=== PATIENT | female | born 1975 | race Caucasian/White ===

== ENCOUNTER 2024-06-01 13:08 | Day surgery (SDC) | payer OTHER ==
[2012-02-03 21:20] VITALS: BP 102/73
[2024-06-01] MEDS ORDERED: Depo-Medrol 40 MG/ML IM ONE (13:09)
[2024-06-01] MEDS ORDERED: BUPIVACAINE 0.5% VIAL IJ ONE (13:09)
[2024-06-01 13:19] LABS: HCG URINE TEST NEGATIVE (NEGATIVE)
[2024-06-01] MEDS ORDERED: propofoL IV ONE (14:04)
--- NOTE | 2024-06-01 16:56 | XRAY ---
Indication: Bilateral SI joint injection. Intraoperative fluoroscopy provided for 18 seconds. 2 digital spot image submitted for interpretation demonstrates posterior needle tips projecting over left and right SI joints. Small amount of contrast injected for needle tip placement. Correlate with intraoperative findings/report.
--- NOTE | 2024-06-01 17:20 | XRAY ---
18 seconds of fluoroscopy was used in surgery for a bilateral sacroiliac joint injection.
== END 2024-06-01 14:32 | disposition home or self-care (01) ==
LOC: SDC-PAIN 13:08
PROVIDERS: ATTEND Psychiatry & Neurology Pain Medicine
DX: M46.1 Sacroiliitis, not elsewhere classified (principal)
CPT/HCPCS: 27096; 72202; 77002; 81025; J2704; Q9966

== ENCOUNTER 2024-07-13 11:29 | Day surgery (SDC) | payer OTHER ==
[2012-02-03 21:20] VITALS: BP 102/73
[2024-07-13] MEDS ORDERED: methylPREDNISolone acetate IM ONE (11:30)
[2024-07-13] MEDS ORDERED: LIDOCAINE HCL 2% 100 MG/5 ML IJ ONE (11:30)
[2024-07-13] MEDS ORDERED: propofoL IV ONE (12:39)
[2024-07-13 13:37] LABS: HCG URINE TEST NEGATIVE (NEGATIVE)
--- NOTE | 2024-07-13 14:33 | XRAY ---
Indication: Bilateral L4-S1 MBB. Intraoperative fluoroscopy provided for 11 seconds. Single digital spot image submitted for interpretation demonstrates posterior needle tips projecting over expected left and right L4-S1 nerve roots. Correlate with intraoperative findings/report.
--- NOTE | 2024-07-13 15:20 | XRAY ---
11 seconds of fluoroscopy was used in surgery for a bilateral L4-S1 MBB.
== END 2024-07-13 13:07 | disposition home or self-care (01) ==
LOC: SDC-PAIN 11:29
PROVIDERS: ATTEND Psychiatry & Neurology Pain Medicine
DX: M47.816 Spondylosis without myelopathy or radiculopathy, lumbar region (principal)
CPT/HCPCS: 64493; 64494; 72020; 77002; 81025; J1010; J2704

== ENCOUNTER 2024-07-28 09:31 | Day surgery (SDC) | payer OTHER ==
[2012-02-03 21:20] VITALS: BP 102/73
[2024-07-28] MEDS ORDERED: methylPREDNISolone acetate IM ONE (09:32)
[2024-07-28] MEDS ORDERED: BUPIVACAINE 0.5% VIAL IJ ONE (09:32)
[2024-07-28] MEDS ORDERED: LIDOCAINE HCL 1% 50 MG/5 ML VL IJ ONE (09:32)
[2024-07-28 10:31] LABS: HCG URINE TEST NEGATIVE (NEGATIVE)
[2024-07-28] MEDS ORDERED: propofoL IV ONE (11:46)
--- NOTE | 2024-07-28 13:22 | XRAY ---
Indication: Bilateral greater trochanter bursa injection. Intraoperative fluoroscopy provided for 23 seconds. 3 digital spot image submitted for interpretation demonstrates needle tips projecting lateral to left and right greater trochanters. Small amount of contrast injected for both needle tip placement. Correlate with intraoperative findings/report.
--- NOTE | 2024-07-28 14:52 | XRAY ---
23 seconds of fluoroscopy was used in surgery for a bilateral greater trochanteric bursa injection.
== END 2024-07-28 12:13 | disposition home or self-care (01) ==
LOC: SDC-PAIN 09:31
PROVIDERS: ATTEND Psychiatry & Neurology Pain Medicine
DX: M70.62 Trochanteric bursitis, left hip (principal); M70.61 Trochanteric bursitis, right hip
CPT/HCPCS: 20610; 73521; 77002; 81025; J1010; J2704; Q9966

== ENCOUNTER 2025-03-05 18:01 | Observation (INO) | payer OTHER ==
--- NOTE | 2025-03-05 18:30 | ERPHSYRPT ---
- History of Present Illness Physician History: Left leg swelling and redness, patient had a dog bite about a week ago, she was seen at [facility] emergency department, she states that she had x-rays and an MRI of her left knee, she was transferred to [facility] and her wound was repaired, she was sent home on antibiotics( she was given IV antibiotics), Her left leg is gotten progressively worse over the last several days with more swelling and redness Timing/Duration: day(s) (6) Quality: painful Severity: moderate Location: extremities (Left knee) Allergies/Adverse Reactions: morphine Allergy (Mild, Verified 03/05/25 18:10) sick Sulfa (Sulfonamide Antibiotics) [Sulfa(Sulfonamide Antibiotics)] Allergy (Mild, Verified 03/05/25 18:10) rash/hives Home Medications: Mirabegron [Myrbetriq] 50 mg PO DAILY 03/05/25 [History] Omeprazole 40 mg PO DAILY 03/05/25 [History] Oxycodone HCl 10 mg PO DAILY 03/05/25 [History] Pregabalin 200 mg PO BID 03/05/25 [History] Hx Tetanus, Diphtheria Vaccination/Date Given: No Hx Influenza Vaccination/Date Given: No Hx Pneumococcal Vaccination/Date Given: No - Past Medical History Pertinent Past Medical History: Yes Neurological History: No Pertinent History ENT History: No Pertinent History Cardiac History: No Pertinent History Respiratory History: No Pertinent History Endocrine Medical History: No Pertinent History Musculoskeletal History: No Pertinent History GI Medical History: No Pertinent History History: No Pertinent History Psycho-Social History: No Pertinent History Female Reproductive Disorders: No Pertinent History Other Medical History: none - Past Surgical History Past Surgical History: Yes Neuro Surgical History: No Pertinent History Cardiac: No Pertinent History Respiratory: No Pertinent History Gastrointestinal: No Pertinent History Genitourinary: No Pertinent History Musculoskeletal: No Pertinent History Female Surgical History: No Pertinent History Other Surgical History: tubes in ears,t&a,tubal 1997 then reversal of tubal 2006 - Female History Hx Last Menstrual Period: 2 WEEKS AGO - Social History Smoking Status: Current every day smoker How long have you smoked: 16years Exposure to second hand smoke: No Drug Use: none - Nursing Vital Signs Nursing Vital Signs: Initial Vital Signs Temperature 98.5 F 03/05/25 18:02 Pulse Rate 78 03/05/25 18:02 Respiratory Rate 16 03/05/25 18:02 Blood Pressure 150/99 03/05/25 18:02 O2 Sat by Pulse Oximetry 96 03/05/25 18:02 Pain Scale Pain Intensity 10 - Physical Exam General Appearance: no apparent distress, alert Eye Exam: PERRL/EOMI, eyes nml inspection Ears, Nose, Throat Exam: normal ENT inspection, pharynx normal, moist mucous membranes Neck Exam: normal inspection, non-tender, supple, full range of motion Respiratory Exam: normal breath sounds, lungs clear, No respiratory distress Cardiovascular Exam: regular rate/rhythm, normal heart sounds Gastrointestinal/Abdomen Exam: soft, mass, No tenderness Back Exam: normal inspection, normal range of motion, No CVA tenderness, No vertebral tenderness Extremity Exam: limited range of motion (left knee), swelling (left knee and proximal tibial skin), tenderness (left knee and tibial skin) Neurologic Exam: alert, oriented x 3, cooperative, normal mood/affect, sensation nml, No motor deficits Skin Exam: normal color, warm, dry, other (sutures in place, no active drainage) SpO2 Interpretation: normal SpO2: 97 Ordered Tests: Active Orders 24 hr Category Date Time Status IV Insertion STAT Care 03/05/25 18:19 Active BLOOD CULTURE Stat Lab 03/05/25 18:33 Received CBC W DIFF Stat Lab 03/05/25 18:30 Received CMP Stat Lab 03/05/25 18:30 Received Lactic Acid Stat Lab 03/05/25 18:41 Completed Medication Summary Discontinued Medications Generic Name Dose Route Start Last Admin Trade Name Freq PRN Reason Stop Dose Admin Hydromorphone HCl 0.5 mg 03/05/25 18:51 03/05/25 18:55 Hydromorphone 1 Mg/1ml Inj IV 03/05/25 18:52 0.5 mg STAT ONE Administration Hydromorphone HCl Confirm 03/05/25 18:55 Hydromorphone 1 Mg/1ml Inj Administered 03/05/25 18:56 Dose 1 mg .ROUTE .STK-MED ONE Ondansetron HCl 4 mg 03/05/25 18:58 Ondansetron Hcl 4 Mg/2 Ml Vial IV 03/05/25 18:59 STAT ONE Oxycodone/Acetaminophen 2 tab 03/05/25 18:46 03/05/25 18:52 Oxycodone Hcl/Apap 5 Mg/325 Mg Tablet PO 03/05/25 18:47 Not Given STAT STA Lab/Rad Data: Laboratory Results 03/05/25 Range/Units 18:41 Lactic Acid 1.0 (0.4-2.0) - Progress Progress Note: 03/05/25 19:[address] Del Rio - Departure Clinical Impression: Dog bite of left lower leg with infection Qualifiers: Encounter type: sequela Qualified Code(s): S81.852S - Open bite, left lower leg, sequela; L08.9 - Local infection of the skin and subcutaneous tissue, unspecified; W54.0XXS - Bitten by dog, sequela Condition: Stable Critical Care Time: No Referrals: KUNAL BIRMINGHAM NP [Primary Care Provider, UNKNOWN] - Follow up/PCP as directed
[2025-03-05 18:37] LABS: BASOPHIL % 0.3 % (0.1-1.2); Basophil (Absolute #) 0.02 x10^3/uL (0.01-0.08); Eosinophil (Absolute #) 0.15 x10^3/uL (0.04-0.36); Hematocrit 29.4 % (34.1-44.9); Hemoglobin 9.2 g/dL (11.2-15.7); IMMATURE GRAN # 0.07 x10^3u/L (0.001-0.031); IMMATURE GRAN % 1.1 % (0.001-0.429); Lymphocyte (Absolute #) 1.90 x10^3/uL (1.18-3.74); Mean Corpuscular Hemoglobin 28.4 pg (25.6-32.2); Mean Corpuscular Hgb Concent. 31.3 g/dL (32.2-35.5); Monocyte (Absolute #) 0.35 x10^3/uL (0.24-0.86); NUCLEATED RBC # 0.00 x10^3u/L (0.00-0.012); NUCLEATED RBC % 0.0 % (0.00-0.2); Platelet Count 294 x10^3/uL (182-369); Red Blood Count 3.24 x10^6/uL (3.93-5.22); White Blood Count 6.6 x10^3/uL (3.98-10.04)
[2025-03-05] MEDS: PERCOCET TABLET 5/325MG PO STA (18:52)
[2025-03-05] MEDS: Hydromorphone 1 mg/ml Injection IV ONE ×2 (18:55→23:32)
[2025-03-05] MEDS ORDERED: Hydromorphone 1 mg/ml Injection ONE (18:55)
[2025-03-05 18:56] LABS: Calcium 8.9 mg/dL (8.4-10.2); Carbon Dioxide 27.0 mmol/L (22-30); Creatinine 1 0.81 mg/dL (0.52-1.04); EST GLOMERULAR FILTRATION RATE 88.4 ML/MIN; Glucose 115.0 mg/dL (74-106); Potassium 3.8 mmol/L (3.5-5.1); SGOT/AST 61.0 U/L (14-36); Total Protein 7.3 g/dL (6.3-8.2)
[2025-03-05] MEDS ORDERED: Zofran 4 MG/2 ML VIAL ONE (18:58)
[2025-03-05 18:59] LABS: SGPT/ALT 5.0 U/L (0-35)
[2025-03-05] MEDS: Zofran 4 MG/2 ML VIAL IV ONE (18:59)
[2025-03-05] MEDS ORDERED: PIPERACILLIN/TAZOBACTAM IV ONE (19:10)
--- NOTE | 2025-03-06 01:10 | PCM.HP ---
History of Present Illness - Chief Complaint Chief Complaint: wound infection Date: 03/05/25 History of Present Illness: TELEMEDICINE H&P Patient name: Justyna GIBBONS Date of : 1975 Date of consultation: 06 March 2025 Inpatient primary provider: Dr. Del Rio Reason for consult: Infected dog bite Room: [facility] Assessment and Plan 1. Infected left lower leg dog bite (acute, uncontrolled) - The wound is located just below the left knee. It is swollen, warm to the touch, and has had some drainage. - The patient experiences significant pain, especially on mobilization. - Plan is to continue Zosyn IV. - Surgical consultation with Dr. Cho has been requested for possible washout. - The patient will be kept NPO after 01:00. - Dilaudid will be provided for pain management. 2. Chronic back pain (chronic, uncontrolled) - The patient takes oxycodone for chronic lower back pain. - This results in a higher tolerance to opioids. - Plan is to provide Dilaudid 2 mg IV every 4 hours as needed for pain. --- Subjective: Reason for Visit: - The patient presented to the emergency department for evaluation of an infected dog bite to the left leg that occurred one week prior. History of Present Illness: - This is a 49-year-old female who was bitten by her pit-donovan mix dog one week ago. She was initially seen at an outside hospital where she received sutures and was treated with one dose of IV antibiotics followed by a 5-day course of oral Augmentin. The sutures remain in place. At home, she experienced persistent significant pain. The area around the bite became increasingly red and appeared infected, prompting her presentation to the emergency room today. She reports nausea but denies any vomiting, fever, or chills. She is able to tolerate oral intake. The pain is described as severe, particularly when she attempts to stand, at which point she feels as though her leg might "explode." Past Medical History: - Irritable bowel syndrome - Bilateral sciatica - Hiatal hernia - Chronic lower back pain Medication History: Outpatient Medications - Omeprazole 40 mg once daily - Pregabalin 200 mg twice daily - Oxycodone 10 mg twice daily for back pain - Mirabegron once daily - Allergies: Sulfa (causes hives) and morphine (causes sickness). Review of Systems: - Constitutional: Denies fever, chills. - Cardiovascular: Denies any history of heart problems. - Gastrointestinal: Reports nausea. Denies vomiting. --- Physical examination Vital Signs Neurological The patient is alert and oriented. Thought content and judgment appear appropriate. Cardiovascular Heart sounds are regular with S1 and S2 present. No murmurs, rubs, or gallops noted. Respiratory Lungs are clear to auscultation bilaterally. Good air entry. Musculoskeletal Examination of the left lower extremity reveals a sutured wound just below the left knee. The surrounding area is swollen compared to the contralateral side and is warm to the touch. There is no active purulent discharge, but there is evidence of recent drainage. Ankle temperature is normal. Bending the knee elicits pain localized to the site of the wound. --- Studies Reviewed - IV antibiotic administration record from ER: I am aware the patient received a dose of Zosyn in the emergency department. Independently reviewed and interpreted by me. Notes reviewed I have reviewed the information provided by the ER physician, Dr. Del Rio, including the discussion with the surgeon, Dr. Cho. --- Thank you for allowing me and my team participate in the care of this patient. Do not hesitate to contact me with any questions or concerns. Aleyda Frias MD Tele Hospitalist Interventional/Structural/General Baggage Agent Supervisor [employer] --- MDM Summary 1. Number and Complexity of Problems Addressed (CoPA): - High Complexity: This patient presents with an acute illness (infected dog bite) that poses a threat to bodily function, superimposed on a chronic illness (chronic pain requiring opioids), which complicates pain management. The infection requires IV antibiotics and potential surgical intervention, indicating a high level of complexity. 2. Amount and/or Complexity of Data to be Reviewed and Analyzed (Data): - Limited: The decision-making process involved reviewing the history of the presenting illness, the patient's medication list, and discussing the case with the ER physician regarding prior treatment (Zosyn administration) and consultati ons (surgical consult with Dr. Cho). This constitutes a limited review of data. 3. Risk of Complications, Morbidity, and/or Mortality (Risk): - High Risk: The patient's management involves IV antibiotics (Zosyn), parenteral controlled substances (Dilaudid), and the decision for NPO status in anticipation of major surgery (wound washout), which carries significant risk. The consideration of hospitalization and escalation of care to a surgical service also classifies the risk as high. Medications & Allergies Home Medications: Home Medication List Mirabegron [Myrbetriq] 50 mg PO DAILY 03/05/25 [History Confirmed 03/05/25] Omeprazole 40 mg PO DAILY 03/05/25 [History Confirmed 03/05/25] Oxycodone HCl 10 mg PO BID 03/05/25 [History Confirmed 03/05/25] Pregabalin 200 mg PO BID 03/05/25 [History Confirmed 03/05/25] Allergies/Adverse Reactions: Allergies Allergy/AdvReac Type Severity Reaction Status Date / Time morphine Allergy Mild sick Verified 03/05/25 18:10 Sulfa (Sulfonamide Allergy Mild rash/hives Verified 03/05/25 18:10 Antibiotics) [Sulfa(Sulfonamide Antibiotics)] - Past Medical History Past Medical History: Yes Neurological History: No Pertinent History ENT History: No Pertinent History Cardiac History: No Pertinent History Respiratory History: No Pertinent History Endocrine Medical History: No Pertinent History Musculoskelatal History: No Pertinent History GI Medical History: GERD History: No Pertinent History Pyscho-Social History: No Pertinent History Reproductive Disorders: No Pertinent History Comment: overactive bladder, IBS, hiatal hernia, bilateral sciatica - Female History Are you now?: No - Past Surgical History Past Surgical History: Yes Neuro Surgical History: No Pertinent History Cardiac History: No Pertinent History Respiratory Surgery: No Pertinent History GI Surgical History: No Pertinent History Genitourinary Surgical Hx: No Pertinent History Musculskeletal Surgical Hx: No Pertinent History Female Surgical History: No Pertinent History Other Surgical History: tubes in ears,t&a,tubal 1997 then reversal of tubal 2006, uterine ablation - Social History Smoking Status: Former smoker How long have you smoked: 16years Exposure to second hand smoke: No Alcohol: Occasionally Drug Use: none - Social Determinants of Health Will the patient participate in the screening: Yes Do you worry about a steady place to live?: No Do you have any problems with any of the following?: No known problems In the past 12 months,have you had to go without utilities?: No Have you or anyone in your house had to go without enough: No Transportation Issues: No Has anyone in your support network made you feel unsafe?: No Does the patient want assistance with any of the above?: No - Physical Exam Vital Signs: Vital Signs - 24 hr Temp Pulse Resp BP BP Pulse Ox 03/05/25 22:35 98.6 F 77 20 118/59 97 03/05/25 22:00 76 18 117/65 97 03/05/25 21:30 72 16 108/69 96 03/05/25 21:00 74 18 120/80 97 03/05/25 20:30 120/81 100 03/05/25 20:00 72 18 111/50 98 03/05/25 19:30 70 15 121/67 98 03/05/25 19:00 97 03/05/25 19:00 80 124/87 96 03/05/25 18:02 98.5 F 78 16 150/99 96 Wound Assessment: Skin/Wound Assessment Wound/Incision Assessment Start: 03/05/25 22:49 Text: Status: Active Freq: Q6H Protocol: Document 03/05/25 22:49 AK (Rec: 03/05/25 22:51 AK [id number]) Wound/Incision Assessment Left Knee Wound Assessment Admission Wound Type dog bite Wound Stage Non Pressure Wound Drainage Amount None General Appearance Well Approximated,Reddened Surrounding Tissue Bright Red,Purple Comment dog bite to left knee - sutures present - periwound redness/bruising/swelling Wound Photo Photo Taken Yes Date: 03/05/25 Time: 22:49 Results - Labs Lab/Micro Results: Lab Results-Last 24 Hours 03/05/25 03/05/25 03/05/25 Range/Units 18:30 18:30 18:41 WBC 6.6 (3.98-10.04) x10^3/uL RBC 3.24 L (3.93-5.22) x10^6/uL Hgb 9.2 L (11.2-15.7) g/dL Hct 29.4 L (34.1-44.9) % MCV 90.7 (79.4-94.8) fL MCH 28.4 (25.6-32.2) pg MCHC 31.3 L (32.2-35.5) g/dL RDW 14.1 (11.7-14.4) % Plt Count 294 (182-369) x10^3/uL MPV 10.0 (9.4-12.3) fL Gran % 62.2 (34.0-71.1) % Immature Gran % (Auto) 1.1 H (0.001-0.429) % Nucleat RBC Rel Count 0.0 (0.00-0.2) % Eos # (Auto) 0.15 (0.04-0.36) x10^3/uL Immature Gran # (Auto) 0.07 H (0.001-0.031) x10^3u/L Absolute Lymphs (auto) 1.90 (1.18-3.74) x10^3/uL Absolute Monos (auto) 0.35 (0.24-0.86) x10^3/uL Absolute Nucleated RBC 0.00 (0.00-0.012) x10^3u/L Lymphocytes % 28.8 (19.3-51.7) % Monocytes % 5.3 (4.7-12.5) % Eosinophils % 2.3 (0.7-5.8) % Basophils % 0.3 (0.1-1.2) % Absolute Granulocytes 4.10 (1.56-6.13) x10^3/uL Basophils # 0.02 (0.01-0.08) x10^3/uL Sodium 137 (135-145) mmol/L Potassium 3.8 (3.5-5.1) mmol/L Chloride 103 (98-107) mmol/L Carbon Dioxide 27 (22-30) mmol/L Anion Gap 11.3 (5-15) MEQ/L BUN 10 (7-17) mg/dL Creatinine 0.81 (0.52-1.04) mg/dL Estimated GFR 88.4 ML/MIN Glucose 115 H (74-106) mg/dL Lactic Acid 1.0 (0.4-2.0) Calcium 8.9 (8.4-10.2) mg/dL Total Bilirubin 0.40 (0.2-1.3) mg/dL AST 61 H (14-36) U/L ALT 5 (0-35) U/L Alkaline Phosphatase 93 (38-126) U/L Serum Total Protein 7.3 (6.3-8.2) g/dL Albumin 4.1 (3.5-5.0) g/dL - Radiology Impressions Radiology Exams & Impressions: Radiology Procedures Category Date Time Status VENOUS UNILAT/LIMITED EXTREMIT [US] Stat Exams 03/05/25 19:34 Taken Telemedicine Encounter - Telemedicine Encounter Telemedicine Encounter: "The entirety of this encounter was performed via Telemedicine" This visit was performed using real-time audio and video connection between my location and thepatients locationwith the assistance of a surrogateat the patients location. Written or verbal consent was obtained from the patient/guardian to perform this visit [facility] technology. Any patient questions regarding the telemedicine interaction were answered.
[2025-03-06] MEDS ORDERED: PIPERACILLIN/TAZOBACTAM IV ONE ×2 (02:13→05:51)
[2025-03-06] MEDS: Hydromorphone 1 mg/ml Injection IV PRN ×2 (04:28→09:23)
[2025-03-06 04:56] LABS: Hematocrit 27.4 % (34.1-44.9); Hemoglobin 8.6 g/dL (11.2-15.7); Mean Corpuscular Hemoglobin 28.6 pg (25.6-32.2); Mean Corpuscular Hgb Concent. 31.4 g/dL (32.2-35.5); Platelet Count 251 x10^3/uL (182-369); Red Blood Count 3.01 x10^6/uL (3.93-5.22); White Blood Count 5.2 x10^3/uL (3.98-10.04)
[2025-03-06 05:34] LABS: Calcium 9.0 mg/dL (8.4-10.2); Carbon Dioxide 28.0 mmol/L (22-30); Creatinine 1 0.81 mg/dL (0.52-1.04); EST GLOMERULAR FILTRATION RATE 88.4 ML/MIN; Glucose 111.0 mg/dL (74-106); Potassium 3.7 mmol/L (3.5-5.1)
--- NOTE | 2025-03-06 08:44 | XRAY ---
Indication: Pain and swelling. Status post dog bite with stitches 1 week ago. Two-dimensional sonogram and color Doppler imaging major venous vessels left leg performed. Comparison: None No thrombus seen in the examined deep venous vessels left leg including greater saphenous vein. Veins demonstrate normal compressibility. Venous waveforms are normal with and without augmentation. Impression: Left leg negative for DVT. Comment: Preliminary report was given.
[2025-03-06] MEDS: MYRBETRIQ PO SCH (09:22)
[2025-03-06] MEDS: Protonix 40MG Tablet PO SCH (09:22)
[2025-03-06] MEDS: LYRICA 100MG PO SCH (09:22)
[2025-03-06] MEDS ORDERED: Oxy-IR 5 MG PO SCH (10:00)
[2025-03-06] MEDS ORDERED: OXYCODONE HCL 10 MG PO SCH (10:00)
--- NOTE | 2025-03-06 11:38 | PCM.NOTE ---
Date and Time: 03/06/25 1127 Subjective Assessment: The patient is a 49-year-old female with a past medical history of irritable bowel syndrome (IBS), chronic low back pain, bilateral sciatic pain, and a hiatal hernia. She presents with a one-week history of a dog bite to the left lower extremity (LLE), sustained from her own pit-donovan mix dog, which has since been euthanized. The patient was initially evaluated at [facility] and subsequently transferred to [place] for wound washout and sutures. She was discharged home on Augmentin. At that time, a tetanus booster was not administered, as she had received one the prior year. A dog bite report was not completed at the time of the initial evaluation; this will be addressed today at our facility. Since discharge, the patient has experienced persistent, worsening pain and progressive erythema of the affected area, raising concern for infection. On 03/05/25, she presented to the emergency department at [facility] with significant pain, redness, and swelling of the LLE. She was admitted for further management. On admission, she reported nausea but denied vomiting, fever, or chills, and she has been able to tolerate oral intake. She describes the pain as severe, particularly when attempting to stand, stating that it feels like her leg may "explode." On examination today, 03/06, the LLE remains red, swollen, and tender in the area surrounding the dog bite. A venous Doppler (VD) was negative for DVT. The patient is currently NPO in preparation for a possible repeat washout by general surgery. Pain is being managed effectively with IV medications. She remains on IV Zosyn for treatment of the presumed infected dog bite. Blood cultures x2 are pending. - Review of Systems Constitutional: No Fever, No Chills Eyes: No Symptoms Ears, Nose, & Throat: No Symptoms Respiratory: No Cough, No Short Of Breath Cardiac: No Chest Pain, No Edema, No Syncope Abdominal/Gastrointestinal: No Abdominal Pain, No Nausea, No Vomiting, No Diarrhea Genitourinary Symptoms: No Dysuria Musculoskeletal: No Back Pain, No Neck Pain Skin: Skin Lesions (multiple wounds of LLE with stiches, edema, and redness), No Rash Neurological: No Dizziness, No Focal Weakness, No Sensory Changes Psychological: No Symptoms Endocrine: No Symptoms Hematologic/Lymphatic: No Symptoms Immunological/Allergic: No Symptoms Objective Exam General Appearance: no apparent distress, alert, obese Neurologic Exam: alert, oriented x 3, cooperative, normal mood/affect, nml cerebellar function, sensation nml, No motor deficits Skin Exam: normal color, warm, dry, other (multiple wounds of LLE with stiches, edema, and erythema) Wound Assessment: Skin/Wound Assessment Wound/Incision Assessment Start: 03/05/25 22:49 Text: Status: Active Freq: Q6H Protocol: Document 03/06/25 08:00 AR (Rec: 03/06/25 11:05 AR [id number]) Wound/Incision Assessment left lower leg Wound Assessment Shift Assessment Wound Type dog bite Wound Stage Non Pressure Wound Drainage Amount None General Appearance Well Approximated,Reddened Surrounding Tissue Bright Red,Purple,Edematous Comment dog bite to left knee - sutures present - redness/ bruising/swelling/heat Wound Photo Photo Taken No Eye Exam: PERRL, EOMI, eyes nml inspection Ears, Nose, Throat Exam: normal ENT inspection, pharynx normal, moist mucous membranes Neck Exam: normal inspection, non-tender, supple, full range of motion Respiratory Exam: normal breath sounds, lungs clear, No respiratory distress Cardiovascular Exam: regular rate/rhythm, normal heart sounds Gastrointestinal/Abdomen Exam: soft, No tenderness, No mass Extremity Exam: normal inspection, normal range of motion Back Exam: normal inspection, normal range of motion, No CVA tenderness, No vertebral tenderness Pelvic Exam: deferred Rectal Exam: deferred Objective Data Vital Signs: Vital Signs - 24 hr Temp Pulse Resp BP BP Pulse Ox 03/06/25 07:24 98.3 F 86 16 116/59 98 03/06/25 04:00 97.3 F 64 20 102/51 97 03/05/25 22:35 98.6 F 77 20 118/59 97 03/05/25 22:00 76 18 117/65 97 03/05/25 21:30 72 16 108/69 96 03/05/25 21:00 74 18 120/80 97 03/05/25 20:30 120/81 100 03/05/25 20:00 72 18 111/50 98 03/05/25 19:30 70 15 121/67 98 03/05/25 19:00 97 03/05/25 19:00 80 124/87 96 03/05/25 18:02 98.5 F 78 16 150/99 96 Pain Assessment - Last Documented Pain Intensity 8 Pain Scale Used 0-10 Pain Scale Intake and Output: Intake & Output 03/03/25 03/04/25 03/05/25 03/06/25 11:59 11:59 11:59 11:59 Intake Total 200 Balance 200 Weight 114.1 kg Lab Results: Lab Results-Last 24 Hours 03/05/25 03/05/25 03/05/25 Range/Units 18:30 18:30 18:41 WBC 6.6 (3.98-10.04) x10^3/uL RBC 3.24 L (3.93-5.22) x10^6/uL Hgb 9.2 L (11.2-15.7) g/dL Hct 29.4 L (34.1-44.9) % MCV 90.7 (79.4-94.8) fL MCH 28.4 (25.6-32.2) pg MCHC 31.3 L (32.2-35.5) g/dL RDW 14.1 (11.7-14.4) % Plt Count 294 (182-369) x10^3/uL MPV 10.0 (9.4-12.3) fL Gran % 62.2 (34.0-71.1) % Immature Gran % (Auto) 1.1 H (0.001-0.429) % Nucleat RBC Rel Count 0.0 (0.00-0.2) % Eos # (Auto) 0.15 (0.04-0.36) x10^3/uL Immature Gran # (Auto) 0.07 H (0.001-0.031) x10^3u/L Absolute Lymphs (auto) 1.90 (1.18-3.74) x10^3/uL Absolute Monos (auto) 0.35 (0.24-0.86) x10^3/uL Absolute Nucleated RBC 0.00 (0.00-0.012) x10^3u/L Lymphocytes % 28.8 (19.3-51.7) % Monocytes % 5.3 (4.7-12.5) % Eosinophils % 2.3 (0.7-5.8) % Basophils % 0.3 (0.1-1.2) % Absolute Granulocytes 4.10 (1.56-6.13) x10^3/uL Basophils # 0.02 (0.01-0.08) x10^3/uL Sodium 137 (135-145) mmol/L Potassium 3.8 (3.5-5.1) mmol/L Chloride 103 (98-107) mmol/L Carbon Dioxide 27 (22-30) mmol/L Anion Gap 11.3 (5-15) MEQ/L BUN 10 (7-17) mg/dL Creatinine 0.81 (0.52-1.04) mg/dL Estimated GFR 88.4 ML/MIN Glucose 115 H (74-106) mg/dL Lactic Acid 1.0 (0.4-2.0) Calcium 8.9 (8.4-10.2) mg/dL Total Bilirubin 0.40 (0.2-1.3) mg/dL AST 61 H (14-36) U/L ALT 5 (0-35) U/L Alkaline Phosphatase 93 (38-126) U/L Serum Total Protein 7.3 (6.3-8.2) g/dL Albumin 4.1 (3.5-5.0) g/dL 03/06/25 03/06/25 Range/Units 04:20 04:20 WBC 5.2 (3.98-10.04) x10^3/uL RBC 3.01 L (3.93-5.22) x10^6/uL Hgb 8.6 L (11.2-15.7) g/dL Hct 27.4 L (34.1-44.9) % MCV 91.0 (79.4-94.8) fL MCH 28.6 (25.6-32.2) pg MCHC 31.4 L (32.2-35.5) g/dL RDW 14.1 (11.7-14.4) % Plt Count 251 (182-369) x10^3/uL MPV 10.2 (9.4-12.3) fL Gran % (34.0-71.1) % Immature Gran % (Auto) (0.001-0.429) % Nucleat RBC Rel Count (0.00-0.2) % Eos # (Auto) (0.04-0.36) x10^3/uL Immature Gran # (Auto) (0.001-0.031) x10^3u/L Absolute Lymphs (auto) (1.18-3.74) x10^3/uL Absolute Monos (auto) (0.24-0.86) x10^3/uL Absolute Nucleated RBC (0.00-0.012) x10^3u/L Lymphocytes % (19.3-51.7) % Monocytes % (4.7-12.5) % Eosinophils % (0.7-5.8) % Basophils % (0.1-1.2) % Absolute Granulocytes (1.56-6.13) x10^3/uL Basophils # (0.01-0.08) x10^3/uL Sodium 137 (135-145) mmol/L Potassium 3.7 (3.5-5.1) mmol/L Chloride 103 (98-107) mmol/L Carbon Dioxide 28 (22-30) mmol/L Anion Gap 9.0 (5-15) MEQ/L BUN 11 (7-17) mg/dL Creatinine 0.81 (0.52-1.04) mg/dL Estimated GFR 88.4 ML/MIN Glucose 111 H (74-106) mg/dL Lactic Acid (0.4-2.0) Calcium 9.0 (8.4-10.2) mg/dL Total Bilirubin (0.2-1.3) mg/dL AST (14-36) U/L ALT (0-35) U/L Alkaline Phosphatase (38-126) U/L Serum Total Protein (6.3-8.2) g/dL Albumin (3.5-5.0) g/dL Radiology Exams: Radiology Procedures Category Date Time Status VENOUS UNILAT/LIMITED EXTREMIT [US] Stat Exams 03/05/25 19:34 Completed Medications: Medications Generic Name Dose Route Start Last Admin Trade Name Freq PRN Reason Stop Dose Admin Hydromorphone HCl 2 mg 03/06/25 08:05 03/06/25 09:23 Hydromorphone 1 Mg/1ml Inj IV 03/11/25 08:04 1 mg Q4H PRN PRN Administration PAIN Piperacillin Sod/Tazobactam 100 mls @ 200 mls/hr 03/06/25 03:00 03/06/25 06:46 Sod 3.375 gm/ Sodium Chloride IV 03/09/25 02:59 200 mls/hr Q6HT GUALBERTO Administration Mirabegron 50 mg 03/06/25 10:00 03/06/25 09:22 Mirabegron 25 Mg Tab.Er.24h PO 04/05/25 09:59 50 mg DAILY GUALBERTO Administration Pantoprazole Sodium 40 mg 03/06/25 10:00 03/06/25 09:22 Protonix (Pantoprazole) 40 Mg Tablet PO 04/05/25 09:59 40 mg DAILY GUALBERTO Administration Pregabalin 200 mg 03/06/25 10:00 03/06/25 09:22 Pregabalin 100 Mg Capsule PO 04/05/25 09:59 200 mg BID GUALBERTO Administration Discontinued Medications Generic Name Dose Route Start Last Admin Trade Name Freq PRN Reason Stop Dose Admin Hydromorphone HCl 0.5 mg 03/05/25 18:51 03/05/25 18:55 Hydromorphone 1 Mg/1ml Inj IV 03/05/25 18:52 0.5 mg STAT ONE Administration Hydromorphone HCl Confirm 03/05/25 18:55 Hydromorphone 1 Mg/1ml Inj Administered 03/05/25 18:56 Dose 1 mg .ROUTE .STK-MED ONE Hydromorphone HCl 1 mg 03/05/25 23:26 03/05/25 23:32 Hydromorphone 1 Mg/1ml Inj IV 03/05/25 23:27 1 mg ONCE ONE Administration Hydromorphone HCl 2 mg 03/06/25 02:09 03/06/25 04:28 Hydromorphone 1 Mg/1ml Inj IV 03/11/25 02:08 1.5 mg Q4H PRN PRN Administration PAIN Piperacillin Sod/Tazobactam 100 mls @ 200 mls/hr 03/05/25 19:04 03/05/25 19:42 Sod 3.375 gm/ Sodium Chloride IV 03/05/25 19:33 Infused STAT STA Infusion Sodium Chloride Confirm 03/05/25 19:11 Sodium Chloride 0.9% Administered 03/05/25 19:12 Dose 100 mls @ ud .ROUTE .STK-MED ONE Sodium Chloride Confirm 03/06/25 02:14 Sodium Chloride 0.9% Administered 03/06/25 02:15 Dose 100 mls @ ud .ROUTE .STK-MED ONE Sodium Chloride Confirm 03/06/25 05:51 Sodium Chloride 0.9% Administered 03/06/25 05:52 Dose 100 mls @ ud .ROUTE .STK-MED ONE Non-Formulary Medication 10 mg 03/06/25 10:00 Oxycodone Hcl [Oxycodone Hcl] PO 04/05/25 09:59 BID GUALBERTO Ondansetron HCl 4 mg 03/05/25 18:58 03/05/25 18:59 Ondansetron Hcl 4 Mg/2 Ml Vial IV 03/05/25 18:59 4 mg STAT ONE Administration Ondansetron HCl Confirm 03/05/25 18:58 Ondansetron Hcl 4 Mg/2 Ml Vial Administered 03/05/25 18:59 Dose 4 mg .ROUTE .STK-MED ONE Oxycodone HCl 10 mg 03/06/25 10:00 Oxycodone Hcl 5 Mg Ir Tab PO 03/11/25 09:59 TID GUALBERTO Oxycodone/Acetaminophen 2 tab 03/05/25 18:46 03/05/25 18:52 Oxycodone Hcl/Apap 5 Mg/325 Mg Tablet PO 03/05/25 18:47 Not Given STAT STA Piperacillin Sod/Tazobactam Sod Confirm 03/05/25 19:10 Piperacillin/Tazobactam Sodium 3.375 Gm Vial Administered 03/05/25 19:11 Dose 3.375 gm IV .STK-MED ONE Piperacillin Sod/Tazobactam Sod Confirm 03/06/25 02:13 Piperacillin/Tazobactam Sodium 3.375 Gm Vial Administered 03/06/25 02:14 Dose 3.375 gm IV .STK-MED ONE Piperacillin Sod/Tazobactam Sod Confirm 03/06/25 05:51 Piperacillin/Tazobactam Sodium 3.375 Gm Vial Administered 03/06/25 05:52 Dose 3.375 gm IV .STK-MED ONE Assessment/Plan (1) Dog bite of left lower leg with infection Current Visit: Yes Status: Acute Qualifiers: Encounter type: sequela Qualified Code(s): S81.852S - Open bite, left lower leg, sequela; L08.9 - Local infection of the skin and subcutaneous tissue, unspecified; W54.0XXS - Bitten by dog, sequela Assessment & Plan: - Zosyn IV - Dog bite form to be filled out - Pt reports tetanus was 1 yr ago - Dilaudid IV for pain control - GS consult for washout today - NPO - CBC, CMP reviewed - BC x2 pending Code(s): S81.852A - OPEN BITE, LEFT LOWER LEG, INITIAL ENCOUNTER; L08.9 - LOCAL INFECTION OF THE SKIN AND SUBCUTANEOUS TISSUE, UNSP; W54.0XXA - BITTEN BY DOG, INITIAL ENCOUNTER (2) Obesity (BMI 30-39.9) Current Visit: Yes Status: Chronic Assessment & Plan: - Advised diet and exercise control (3) Chronic back pain Current Visit: Yes Status: Chronic Assessment & Plan: - Oral meds on hold as NPO - Dilaudid for now VTE: SCD right leg only PPI: Omeprazole Next of KIN: Child- [facility] [phone] D/C plan: pending surgery recs Code status: Full Plan of care time: > 40 minutes Code(s): M54.9 - DORSALGIA, UNSPECIFIED; G89.29 - OTHER CHRONIC PAIN
[2025-03-06] MEDS: Oxycontin 10 MG ER PO PRN (18:57)
[2025-03-07 04:37] LABS: Hematocrit 27.7 % (34.1-44.9); Hemoglobin 8.6 g/dL (11.2-15.7); Mean Corpuscular Hemoglobin 28.4 pg (25.6-32.2); Mean Corpuscular Hgb Concent. 31.0 g/dL (32.2-35.5); Platelet Count 277 x10^3/uL (182-369); Red Blood Count 3.03 x10^6/uL (3.93-5.22); White Blood Count 6.2 x10^3/uL (3.98-10.04)
[2025-03-07 05:21] LABS: Calcium 8.8 mg/dL (8.4-10.2); Carbon Dioxide 27.0 mmol/L (22-30); Creatinine 1 0.87 mg/dL (0.52-1.04); EST GLOMERULAR FILTRATION RATE 81.1 ML/MIN; Glucose 117.0 mg/dL (74-106); Potassium 4.0 mmol/L (3.5-5.1)
--- NOTE | 2025-03-07 09:27 | PCM.NOTE ---
Date and Time: 03/07/25 0921 Subjective Assessment: 03/06/25 The patient is a 49-year-old female with a past medical history of irritable bowel syndrome (IBS), chronic low back pain, bilateral sciatic pain, and a hiatal hernia. She presents with a one-week history of a dog bite to the left lower extremity (LLE), sustained from her own pit-donovan mix dog, which has since been euthanized. The patient was initially evaluated at [facility] and subsequently transferred to [place] for wound washout and sutures. She was discharged home on Augmentin. At that time, a tetanus booster was not administered, as she had received one the prior year. A dog bite report was not completed at the time of the initial evaluation; this will be addressed today at our facility. Since discharge, the patient has experienced persistent, worsening pain and progressive erythema of the affected area, raising concern for infection. On 03/05/25, she presented to the emergency department at [facility] with significant pain, redness, and swelling of the LLE. She was admitted for further management. On admission, she reported nausea but denied vomiting, fever, or chills, and she has been able to tolerate oral intake. She describes the pain as severe, particularly when attempting to stand, stating that it feels like her leg may "explode." On examination today, 03/06, the LLE remains red, swollen, and tender in the area surrounding the dog bite. A venous Doppler (VD) was negative for DVT. The patient is currently NPO in preparation for a possible r epeat washout by general surgery. Pain is being managed effectively with IV medications. She remains on IV Zosyn for treatment of the presumed infected dog bite. Blood cultures x2 are pending. 03/07/25 The patient is resting in bed and reports that she did not feel well throughout the day yesterday and was unable to get much sleep last night due to increased swelling in her leg. As of today, the swelling and redness have improved. A venous duplex performed yesterday was negative for deep vein thrombosis. She reports experiencing constipation, which she attributes to the narcotic pain medication. She normally uses milk of magnesia at home, and this will be ordered for her. The patient had a temperature of 99.6F last night. Blood cultures x2 are still pending. Her hemoglobin is 8.6, and an iron panel has been ordered to further evaluate for possible anemia. Dr. Copeland from general surgery evaluated the patient yesterday and determined that no surgical intervention is needed at this time for the dog bite wound. Outpatient follow-up can be arranged if necessary. The patient expresses a desire to remain hospitalized for another night. She will continue on Zosyn for treatment of the infected dog bite on the left leg. - Review of Systems Constitutional: No Fever, No Chills Eyes: No Symptoms Ears, Nose, & Throat: No Symptoms Respiratory: No Cough, No Short Of Breath Cardiac: No Chest Pain, No Edema, No Syncope Abdominal/Gastrointestinal: No Abdominal Pain, No Nausea, No Vomiting, No Diarrhea Genitourinary Symptoms: No Dysuria Musculoskeletal: No Back Pain, No Neck Pain Skin: Skin Lesions (dog bite wounds with stiches left lower leg), No Rash Neurological: No Dizziness, No Focal Weakness, No Sensory Changes Psychological: No Symptoms Endocrine: No Symptoms Hematologic/Lymphatic: No Symptoms Immunological/Allergic: No Symptoms Objective Exam General Appearance: no apparent distress, alert, obese Neurologic Exam: alert, oriented x 3, cooperative, normal mood/affect, nml cerebellar function, sensation nml, No motor deficits Skin Exam: normal color, warm, dry, other (multiple dog bite lesions LLE with stiches, erythema and edema improving) Wound Assessment: Skin/Wound Assessment Wound/Incision Assessment Start: 03/05/25 22:49 Text: Status: Active Freq: Q6H Protocol: Document 03/07/25 08:00 DS (Rec: 03/07/25 08:53 DS [id number]) Wound/Incision Assessment left lower leg Wound Assessment Shift Assessment Wound Type dog bite Wound Stage Non Pressure Wound Drainage Amount None General Appearance Well Approximated,Reddened Surrounding Tissue Bright Red,Purple,Edematous Comment dog bite to left knee - sutures present - redness/ bruising/swelling/heat Wound Photo Photo Taken No Eye Exam: PERRL, EOMI, eyes nml inspection Ears, Nose, Throat Exam: normal ENT inspection, pharynx normal, moist mucous membranes Neck Exam: normal inspection, non-tender, supple, full range of motion Respiratory Exam: normal breath sounds, lungs clear, No respiratory distress Cardiovascular Exam: regular rate/rhythm, normal heart sounds Gastrointestinal/Abdomen Exam: soft, No tenderness, No mass Extremity Exam: normal inspection, normal range of motion Back Exam: normal inspection, normal range of motion, No CVA tenderness, No vertebral tenderness Pelvic Exam: deferred Rectal Exam: deferred Objective Data Vital Signs: Vital Signs - 24 hr Temp Pulse Resp BP Pulse Ox 03/07/25 03:53 99.6 F 71 18 105/59 100 03/06/25 23:41 98.6 F 72 15 112/56 97 03/06/25 19:34 98.7 F 75 16 113/55 99 03/06/25 15:47 97.8 F 75 16 108/57 99 03/06/25 11:51 97.9 F 65 16 107/55 99 Pain Assessment - Last Documented Pain Intensity 6 Pain Scale Used 0-10 Pain Scale Intake and Output: Intake & Output 03/04/25 03/05/25 03/06/25 03/07/25 11:59 11:59 11:59 11:59 Intake Total 200 1164 Balance 200 1164 Weight 114.1 kg Lab Results: Lab Results-Last 24 Hours 03/07/25 03/07/25 Range/Units 04:25 04:25 WBC 6.2 (3.98-10.04) x10^3/uL RBC 3.03 L (3.93-5.22) x10^6/uL Hgb 8.6 L (11.2-15.7) g/dL Hct 27.7 L (34.1-44.9) % MCV 91.4 (79.4-94.8) fL MCH 28.4 (25.6-32.2) pg MCHC 31.0 L (32.2-35.5) g/dL RDW 14.2 (11.7-14.4) % Plt Count 277 (182-369) x10^3/uL MPV 10.0 (9.4-12.3) fL Sodium 137 (135-145) mmol/L Potassium 4.0 (3.5-5.1) mmol/L Chloride 104 (98-107) mmol/L Carbon Dioxide 27 (22-30) mmol/L Anion Gap 9.5 (5-15) MEQ/L BUN 10 (7-17) mg/dL Creatinine 0.87 (0.52-1.04) mg/dL Estimated GFR 81.1 ML/MIN Glucose 117 H (74-106) mg/dL Calcium 8.8 (8.4-10.2) mg/dL Radiology Exams: Radiology Procedures Category Date Time Status VENOUS UNILAT/LIMITED EXTREMIT [US] Stat Exams 03/05/25 19:34 Completed Medications: Medications Generic Name Dose Route Start Last Admin Trade Name Freq PRN Reason Stop Dose Admin Piperacillin Sod/Tazobactam 100 mls @ 200 mls/hr 03/06/25 03:00 03/07/25 05:52 Sod 3.375 gm/ Sodium Chloride IV 03/09/25 02:59 200 mls/hr Q6HT GUALBERTO Administration Mirabegron 50 mg 03/06/25 10:00 03/06/25 09:22 Mirabegron 25 Mg Tab.Er.24h PO 04/05/25 09:59 50 mg DAILY GUALBERTO Administration Oxycodone HCl 10 mg 03/06/25 16:05 03/07/25 04:46 Oxycodone Hcl 10 Mg Controlled Release Tablet PO 03/11/25 16:14 10 mg TID PRN PRN Administration PAIN Pantoprazole Sodium 40 mg 03/06/25 10:00 03/06/25 09:22 Protonix (Pantoprazole) 40 Mg Tablet PO 04/05/25 09:59 40 mg DAILY GUALBERTO Administration Pregabalin 200 mg 03/06/25 10:00 03/06/25 21:18 Pregabalin 100 Mg Capsule PO 04/05/25 09:59 200 mg BID GUALBERTO Administration Discontinued Medications Generic Name Dose Route Start Last Admin Trade Name Heshamq PRN Reason Stop Dose Admin Hydromorphone HCl 0.5 mg 03/05/25 18:51 03/05/25 18:55 Hydromorphone 1 Mg/1ml Inj IV 03/05/25 18:52 0.5 mg STAT ONE Administration Hydromorphone HCl Confirm 03/05/25 18:55 Hydromorphone 1 Mg/1ml Inj Administered 03/05/25 18:56 Dose 1 mg .ROUTE .STK-MED ONE Hydromorphone HCl 1 mg 03/05/25 23:26 03/05/25 23:32 Hydromorphone 1 Mg/1ml Inj IV 03/05/25 23:27 1 mg ONCE ONE Administration Hydromorphone HCl 2 mg 03/06/25 02:09 03/06/25 04:28 Hydromorphone 1 Mg/1ml Inj IV 03/11/25 02:08 1.5 mg Q4H PRN PRN Administration PAIN Hydromorphone HCl 2 mg 03/06/25 08:05 03/06/25 13:31 Hydromorphone 1 Mg/1ml Inj IV 03/11/25 08:04 1 mg Q4H PRN PRN Administration PAIN Piperacillin Sod/Tazobactam 100 mls @ 200 mls/hr 03/05/25 19:04 03/05/25 19:42 Sod 3.375 gm/ Sodium Chloride IV 03/05/25 19:33 Infused STAT STA Infusion Sodium Chloride Confirm 03/05/25 19:11 Sodium Chloride 0.9% Administered 03/05/25 19:12 Dose 100 mls @ ud .ROUTE .STK-MED ONE Sodium Chloride Confirm 03/06/25 02:14 Sodium Chloride 0.9% Administered 03/06/25 02:15 Dose 100 mls @ ud .ROUTE .STK-MED ONE Sodium Chloride Confirm 03/06/25 05:51 Sodium Chloride 0.9% Administered 03/06/25 05:52 Dose 100 mls @ ud .ROUTE .STK-MED ONE Non-Formulary Medication 10 mg 03/06/25 10:00 Oxycodone Hcl [Oxycodone Hcl] PO 04/05/25 09:59 BID GUALBERTO Ondansetron HCl 4 mg 03/05/25 18:58 03/05/25 18:59 Ondansetron Hcl 4 Mg/2 Ml Vial IV 03/05/25 18:59 4 mg STAT ONE Administration Ondansetron HCl Confirm 03/05/25 18:58 Ondansetron Hcl 4 Mg/2 Ml Vial Administered 03/05/25 18:59 Dose 4 mg .ROUTE .STK-MED ONE Oxycodone HCl 10 mg 03/06/25 10:00 Oxycodone Hcl 5 Mg Ir Tab PO 03/11/25 09:59 TID GUALBERTO Oxycodone/Acetaminophen 2 tab 03/05/25 18:46 03/05/25 18:52 Oxycodone Hcl/Apap 5 Mg/325 Mg Tablet PO 03/05/25 18:47 Not Given STAT STA Piperacillin Sod/Tazobactam Sod Confirm 03/05/25 19:10 Piperacillin/Tazobactam Sodium 3.375 Gm Vial Administered 03/05/25 19:11 Dose 3.375 gm IV .STK-MED ONE Piperacillin Sod/Tazobactam Sod Confirm 03/06/25 02:13 Piperacillin/Tazobactam Sodium 3.375 Gm Vial Administered 03/06/25 02:14 Dose 3.375 gm IV .STK-MED ONE Piperacillin Sod/Tazobactam Sod Confirm 03/06/25 05:51 Piperacillin/Tazobactam Sodium 3.375 Gm Vial Administered 03/06/25 05:52 Dose 3.375 gm IV .STK-MED ONE Assessment/Plan (1) Dog bite of left lower leg with infection Current Visit: Yes Status: Acute Qualifiers: Encounter type: sequela Qualified Code(s): S81.852S - Open bite, left lower leg, sequela; L08.9 - Local infection of the skin and subcutaneous tissue, unspecified; W54.0XXS - Bitten by dog, sequela Code(s): S81.852A - OPEN BITE, LEFT LOWER LEG, INITIAL ENCOUNTER; L08.9 - LOCAL INFECTION OF THE SKIN AND SUBCUTANEOUS TISSUE, UNSP; W54.0XXA - BITTEN BY DOG, INITIAL ENCOUNTER (2) Obesity (BMI 30-39.9) Current Visit: Yes Status: Chronic (3) Chronic back pain Current Visit: Yes Status: Chronic Assessment & Plan: (1) Dog bite of left lower leg with infection Current Visit: Yes Status: Acute Qualifiers: Encounter type: sequela Qualified Code(s): S81.852S - Open bite, left lower leg, sequela; L08.9 - Local infection of the skin and subcutaneous tissue, unspecified; W54.0XXS - Bitten by dog, sequela Assessment & Plan: - Zosyn IV - Dog bite form to be filled out - Pt reports tetanus was 1 yr ago - Dilaudid IV for pain control - GS consult for washout today - NPO - CBC, CMP reviewed - BC x2 pending - VD negative for DVT - Narcotic pain medication 03/07 - BC x2 - prelim negative - CBC, CMP reviewed - Erythema and edema improving - GS did not feel any procedure was needed yesterday - Temp 99.6 last night - Narcotic pain medication Code(s): S81.852A - OPEN BITE, LEFT LOWER LEG, INITIAL ENCOUNTER; L08.9 - LOCAL INFECTION OF THE SKIN AND SUBCUTANEOUS TISSUE, UNSP; W54.0XXA - BITTEN BY DOG, INITIAL ENCOUNTER (2) Obesity (BMI 30-39.9) Current Visit: Yes Status: Chronic Assessment & Plan: - Advised diet and exercise control (3) Chronic back pain Current Visit: Yes Status: Chronic Assessment & Plan: - Oral meds on hold as NPO - Dilaudid for now while NPO - Changed back to oral narcotic pain meds when not NPO 03/07 - Oxycodone TID PRN while in the hospital for dog bite wound Code(s): M54.9 - DORSALGIA, UNSPECIFIED; G89.29 - OTHER CHRONIC PAIN Code(s): M54.9 - DORSALGIA, UNSPECIFIED; G89.29 - OTHER CHRONIC PAIN (4) Constipation Current Visit: Yes Status: Acute Assessment & Plan: - 2:2 narcotic pain medication - Pt requested MOM Code(s): K59.00 - CONSTIPATION, UNSPECIFIED (5) Anemia Current Visit: Yes Status: Acute Assessment & Plan: - Anemia panel ordered - Hgb 8.6, HCT 27.7 VTE: SCD right leg only PPI: Omeprazole Next of KIN: Child- [facility] [phone] D/C plan: tomorrow Code status: Full Plan of care time: > 42 minutes Code(s): D64.9 - ANEMIA, UNSPECIFIED
[2025-03-07] MEDS ORDERED: TYLENOL 325 MG PO PRN (09:35)
[2025-03-07 09:39] LABS: Iron 51 ug/dL (37-170); TIBC 321 ug/dL (265-462)
--- NOTE | 2025-03-07 11:05 | CONS ---
HISTORY: This patient was seen per Dr. Memo Cho who was on-call yesterday. Consulted him last night. He asked that I check on the patient while I am here doing some outpatient procedure. Apparently, the patient is a 49-year-old. A week ago she had a dog bite, [facility]. Apparently was sent to [facility] and had closure. She had some pain, redness, and swelling, so she came into the ER here. Dr. Cho agreed to follow her. She was admitted here. Patient has some chronic back pain as well. The patient was apparently admitted yesterday. She has been on IV antibiotics due to some cellulitis. PAST MEDICAL HISTORY: She had IBS, history of bilateral sciatica, and overactive bladder in the past. PAST SURGICAL HISTORY: Had tubal in the past, had tubes in her ears, had tubal reversal, had a uterine ablation in the past. She had tonsillectomy in the past. ALLERGIES: Morphine and sulfa. FAMILY HISTORY: Negative with regard to this specific problem. SOCIAL HISTORY: Former smoker. Occasional alcohol use, no abuse. REVIEW OF SYSTEMS: Twelve systems reviewed and negative other than noted above and per admission assessment. LABORATORY DATA AND TESTS: She had a duplex that did not show any evidence of any DVT according to the report. She has a white count of 5.2, admission 6.6; hemoglobin 8.6; platelets 251,000. Liver function tests unremarkable. AST is only 161. The rest are completely normal. PHYSICAL EXAMINATION: GENERAL: No acute distress. VITAL SIGNS: She is afebrile, temperature 97.3, pulse 64, 97% on room air, blood pressure is 102 to 116 over 51 to 59. HEENT: Sclerae nonicteric. NECK: No JVD. CHEST: Equal excursion. Nonlabored breathing. CARDIOVASCULAR: Regular pulse. ABDOMEN: Nondistended. EXTREMITIES: Pertinent for the left lower extremity has multiple wounds from a dog bite. Closed with some, whether this is a Monocryl or reabsorbable suture is unclear. It was done at [facility]. There is a small amount of clearish drainage coming from the lower part of one of the wounds. She has some mild redness and swelling and bruised area there. IMPRESSION: Cellulitis and swelling, left lower leg dog bite injury from a week or so ago, closed at [facility]. She has some slight erythema and some bruising and swelling in the area. Ultrasound did not show any DVT. She did not appear to have fluctuance right at the closure sites themselves. Discussed with Dr. Cho who had seen this patient for. I did not think she necessary needs surgery. She needs continued IV antibiotics and leg elevation. She is nontoxic with a normal white count. She does not need any emergent surgical intervention. She understands though if she did worsen or failed to continue to improve that she might need surgical intervention which might require tacking of the area, but at this time, will continue IV antibiotics and medical management as per Dr. Memo Cho at this point and will see if he can re-evaluate the patient the next day or two. Meantime, she is going to be sore as these are difficult injuries and takes multiple weeks to heal. Continue leg elevation and IV antibiotics for now. Continue Lovenox for DVT prophylaxis in the interim. The patient was seen per Dr. Memo Cho who she has consulted.
[2025-03-07 11:44] LABS: Ferritin 76.1 ng/mL (11.1-264)
[2025-03-07] MEDS: MILK OF MAGNESIA 30 ML PO PRN (21:11)
[2025-03-08 05:27] LABS: Hematocrit 27.4 % (34.1-44.9); Hemoglobin 8.7 g/dL (11.2-15.7); Mean Corpuscular Hemoglobin 28.4 pg (25.6-32.2); Mean Corpuscular Hgb Concent. 31.8 g/dL (32.2-35.5); Platelet Count 297 x10^3/uL (182-369); Red Blood Count 3.06 x10^6/uL (3.93-5.22); White Blood Count 6.1 x10^3/uL (3.98-10.04)
[2025-03-08 06:01] LABS: Calcium 9.1 mg/dL (8.4-10.2); Carbon Dioxide 28.0 mmol/L (22-30); Creatinine 1 0.84 mg/dL (0.52-1.04); EST GLOMERULAR FILTRATION RATE 84.6 ML/MIN; Glucose 112.0 mg/dL (74-106); Potassium 3.8 mmol/L (3.5-5.1)
[2025-03-08 07:45] VITALS: RESP 18; O2SAT 97
[2025-03-08] MEDS: FEOSOL 325 MG PO SCH (09:20)
[2025-03-08] MEDS ORDERED: Miralax Powder 17GM PACKET PO PRN (09:48)
--- NOTE | 2025-03-08 10:27 | XRAY ---
Indication: Dog bite. Comparison: None 2 view left lower leg demonstrates osteopenia, small posterior heel spur, and mild proximal anterior soft tissue swelling . No other bony, articular, or soft tissue abnormalities.
--- NOTE | 2025-03-08 11:03 | PCM.DS ---
Discharge Summary Date of Admission: 03/05/25 22:07 Date of Discharge: 03/08/25 Admitting Physician: DIANELYS HENLEY MD Consults: Consults on Case 03/06/25 11:50 Consult Surgery ROUTINE Primary Care Provider: KUNAL BIRMINGHAM NP Allergies Allergies morphine Allergy (Mild, Verified 03/05/25 18:10) sick Sulfa (Sulfonamide Antibiotics) [Sulfa(Sulfonamide Antibiotics)] Allergy (Mild, Verified 03/05/25 18:10) [facility] Summary - Hospital Course Hospital Course: The patient is a 49-year-old female with a past medical history of irritable bowel syndrome (IBS), chronic low back pain, bilateral sciatic pain, and a hiatal hernia. She was admitted on 03/05/25 for evaluation and treatment of a worsening left lower extremity (LLE) dog bite infection. The injury occurred approximately one week prior, inflicted by the patients own pit-donovan mix dog, which has since been euthanized. Initially, she was evaluated at [facility] and transferred to a hospital in [place] for wound washout and suturing. She was discharged from that facility on oral Augmentin. A tetanus booster was not given, as she had received one the previous year. No dog bite report was completed at the time of initial treatment, and this was addressed during her current admission. Following discharge, the patient reported increasing pain, swelling, and redness in the affected leg. She presented to [facility] with concern for infection. At the time of admission, she was afebrile but reported severe pain, especially with standing, and described a sensation that her leg might "explode." On physical examination, the wound area appeared red, swollen, and tender. She denied chills or vomiting but reported some nausea and constipation, the latter attributed to narcotic pain medication. Venous Doppler and duplex studies were negative for deep vein thrombosis. Blood cultures were drawn and ultimately returned negative. She was started on IV Zosyn for presumed soft tissue infection and responded clinically with improving erythema and swelling over the course of her hospitalization. On 03/06/25, the patient remained afebrile and her symptoms began to improve. She experienced difficulty sleeping due to leg discomfort. An evaluation by general surgery (Dr. Copeland) concluded that no further surgical intervention was needed at that time. She continued on IV antibiotics and her pain was managed effectively. Her hemoglobin was noted to be 8.6, and an iron panel was ordered to further investigate possible anemia, found to have iron def. anemia. She remained hemodynamically stable. On 03/07/25, she reported ongoing discomfort and constipation, and milk of magnesia was ordered per her home regimen. Despite mild residual redness and tenderness on the inner aspect of the left leg below the knee, the infection continued to improve clinically. By 03/08/25, the patient remained afebrile with normal white blood cell count and negative blood cultures. An X-ray of the LLE was obtained, showing no evidence of osteomyelitis. WC obtained as there is serosanguineous drainage. The patient continued to report some pain but was otherwise stable for discharge. Case management determined that her inpatient stay had reached its limit, and she was discharged home in stable condition with a prescription for oral antibiotics. She was advised to follow up with her primary care provider within one week for wound reassessment and to further evaluate her anemia. Discharge instructions included completing her antibiotic course, monitoring for signs of worsening infection, maintaining wound care, using laxatives as needed for opioid-induced constipation, and avoiding strenuous activity until fully healed. She denied any further concerns at the time of discharge. - Vitals & Intake/Output Vital Signs: Vital Signs Temperature 97.5 F 03/08/25 07:44 Pulse Rate 64 03/08/25 07:44 Respiratory Rate 18 03/08/25 07:44 Blood Pressure 127/53 03/08/25 07:44 O2 Sat by Pulse Oximetry 97 03/08/25 07:44 Intake & Output: Intake & Output 03/05/25 03/06/25 03/07/25 03/08/25 11:59 11:59 11:59 11:59 Intake Total 200 1524 2040 Balance 200 1524 2040 Weight 114.1 kg 114.1 kg - Lab Result Diagrams: 03/08/25 04:25 03/08/25 04:25 Lab Results-Last 24 Hrs: Lab Results-Last 24 Hours 03/07/25 03/08/25 03/08/25 Range/Units 04:39 04:25 04:25 WBC 6.1 (3.98-10.04) x10^3/uL RBC 3.06 L (3.93-5.22) x10^6/uL Hgb 8.7 L (11.2-15.7) g/dL Hct 27.4 L (34.1-44.9) % MCV 89.5 (79.4-94.8) fL MCH 28.4 (25.6-32.2) pg MCHC 31.8 L (32.2-35.5) g/dL RDW 14.2 (11.7-14.4) % Plt Count 297 (182-369) x10^3/uL MPV 10.6 (9.4-12.3) fL Sodium 139 (135-145) mmol/L Potassium 3.8 (3.5-5.1) mmol/L Chloride 105 (98-107) mmol/L Carbon Dioxide 28 (22-30) mmol/L Anion Gap 9.6 (5-15) MEQ/L BUN 13 (7-17) mg/dL Creatinine 0.84 (0.52-1.04) mg/dL Estimated GFR 84.6 ML/MIN Glucose 112 H (74-106) mg/dL Calcium 9.1 (8.4-10.2) mg/dL Ferritin 76.1 (11.1-264) ng/mL Vitamin B12 573 (239-931) pg/mL Folic Acid 6.46 (2.76 - >20) ng/mL Micro Results-Entire Visit: Microbiology 03/05/25 18:33 Blood Culture - Preliminary Blood 03/05/25 18:30 Blood Culture - Preliminary Blood - Radiology Exams Ordered Rad Exams-Entire Visit: Radiology Procedures Category Date Time Status LOWER LEG Routine Exams 03/08/25 09:48 Completed Discharge Exam General Appearance: no apparent distress, alert, obese Neurologic Exam: alert, oriented x 3, cooperative, normal mood/affect, nml cerebellar function, sensation nml, No motor deficits Eye Exam: PERRL, EOMI, eyes nml inspection Ears, Nose, Throat Exam: normal ENT inspection, pharynx normal, moist mucous membranes Neck Exam: normal inspection, non-tender, supple, full range of motion Respiratory Exam: normal breath sounds, lungs clear, No respiratory distress Cardiovascular Exam: regular rate/rhythm, normal heart sounds Gastrointestinal/Abdomen Exam: soft, No tenderness, No mass Pelvic Exam: deferred Rectal Exam: deferred Back Exam: normal inspection, normal range of motion, No CVA tenderness, No vertebral tenderness Extremity Exam: normal inspection, normal range of motion Skin Exam: normal color, warm, dry, other (LLE redness around right inner wound - however improving compared to admisson) Wound Assessment: Skin/Wound Assessment Wound/Incision Assessment Start: 03/05/25 22:49 Text: Status: Active Freq: Q6H Protocol: Document 03/08/25 08:00 DS (Rec: 03/08/25 08:40 DS [id number]) Wound/Incision Assessment left lower leg Wound Assessment Shift Assessment Wound Type dog bite Wound Stage Non Pressure Wound Drainage Amount None General Appearance Well Approximated,Reddened Surrounding Tissue Bright Red,Purple,Edematous Comment dog bite to left knee - sutures present - redness/ bruising/swelling/heat Wound Photo Photo Taken No Final Diagnosis/Problem List - Final Discharge Diagnosis/Problem (1) Dog bite of left lower leg with infection Current Visit: Yes Status: Acute Code(s): S81.852A - OPEN BITE, LEFT LOWER LEG, INITIAL ENCOUNTER; L08.9 - LOCAL INFECTION OF THE SKIN AND SUBCUTANEOUS TISSUE, UNSP; W54.0XXA - BITTEN BY DOG, INITIAL ENCOUNTER (2) Obesity (BMI 30-39.9) Current Visit: Yes Status: Chronic (3) Chronic back pain Current Visit: Yes Status: Chronic Code(s): M54.9 - DORSALGIA, UNSPECIFIED; G89.29 - OTHER CHRONIC PAIN (4) Constipation Current Visit: Yes Status: Acute Code(s): K59.00 - CONSTIPATION, UNSPECIFIED (5) Anemia Current Visit: Yes Status: Acute Assessment & Plan: (1) Dog bite of left lower leg with infection Current Visit: Yes Status: Acute Qualifiers: Encounter type: sequela Qualified Code(s): S81.852S - Open bite, left lower leg, sequela; L08.9 - Local infection of the skin and subcutaneous tissue, unspecified; W54.0XXS - Bitten by dog, sequela Assessment & Plan: - Zosyn IV - Dog bite form to be filled out - Pt reports tetanus was 1 yr ago - Dilaudid IV for pain control - GS consult for washout today - NPO - CBC, CMP reviewed - BC x2 pending - VD negative for DVT - Narcotic pain medication 03/07 - BC x2 - prelim negative - CBC, CMP reviewed - Erythema and edema improving - GS did not feel any procedure was needed yesterday - Temp 99.6 last night - Narcotic pain medication 03/08 - XR LLE negative - CBC, CMP reviewed - D/C with IV antibiotic - Wound culture, + draining today Code(s): S81.852A - OPEN BITE, LEFT LOWER LEG, INITIAL ENCOUNTER; L08.9 - LOCAL INFECTION OF THE SKIN AND SUBCUTANEOUS TISSUE, UNSP; W54.0XXA - BITTEN BY DOG, INITIAL ENCOUNTER (2) Obesity (BMI 30-39.9) Current Visit: Yes Status: Chronic Assessment & Plan: - Advised diet and exercise control (3) Chronic back pain Current Visit: Yes Status: Chronic Assessment & Plan: - Oral meds on hold as NPO - Dilaudid for now while NPO - Changed back to oral narcotic pain meds when not NPO 03/07 - Oxycodone TID PRN while in the hospital for dog bite wound Code(s): M54.9 - DORSALGIA, UNSPECIFIED; G89.29 - OTHER CHRONIC PAIN (4) Constipation Current Visit: Yes Status: Acute Assessment & Plan: - 2:2 narcotic pain medication - Pt requested MOM PRN 03/08 - Added miralax PRN Code(s): K59.00 - CONSTIPATION, UNSPECIFIED (5) Anemia Current Visit: Yes Status: Acute Assessment & Plan: - Anemia panel ordered - Hgb 8.6, HCT 27.7 03/08 - Hgb 8.7 - + iron def anemia - Ferrous sulfate PO D/C plan of care time : 45 minutes New meds at d/c: doxycycline, ferrous sulfate * Will continue to follow WC and BC x2 OP Code(s): D64.9 - ANEMIA, UNSPECIFIED - Discharge Discharge Date: 03/08/25 Disposition: Home, Self-Care Condition: Stable Prescriptions: New Ferrous Sulfate 325 mg [Feosol 325 mg] 325 mg PO DAILY 30 Days #30 tablet Continue Pregabalin 200 mg PO BID Oxycodone HCl 10 mg PO BID Omeprazole 40 mg PO DAILY Mirabegron [Myrbetriq] 50 mg PO DAILY Instructions: Low iron in adults - Discharge instructions, Animal bites - ED discharge instructions Additional Instructions: *You can obtain OTC meds for constipation if needed Follow up with: KUNAL BIRMINGHAM NP [Primary Care Provider, UNKNOWN] - 03/13/25 3:45 pm
[2025-03-08 12:00] VITALS: BP 115/64; PULSE 73; TEMP 97.9
== END 2025-03-08 12:53 | disposition home or self-care (01) ==
LOC: ED 18:01 → MED SURG 22:07
PROVIDERS: ADMIT Internal Medicine; ATTEND Internal Medicine
DX: S81.852S Open bite, left lower leg, sequela (principal); W54.0XXS Bitten by dog, sequela; L03.116 Cellulitis of left lower limb; K59.00 Constipation, unspecified; E66.9 Obesity, unspecified; M54.9 Dorsalgia, unspecified; D64.9 Anemia, unspecified; G89.29 Other chronic pain; Z79.899 Other long term (current) drug therapy
CPT/HCPCS: 36415; 73590; 80048; 80053; 82607; 82728; 82746; 83540; 83550; 83605; 85025; 85027; 87040; 87070; 93971; 96374; 99285; Q3014